=== PATIENT | male | born 2000 | race Caucasian/White ===

== ENCOUNTER 2025-01-24 09:51 | Day surgery (SDC) | payer BC, MEDICAID ==
[2025-01-24] MEDS ORDERED: Propofol 200 MG/20 ML SDV ONE (09:55)
[2025-01-24] MEDS ORDERED: fentaNYL 100 MCG/2 ML SDV ONE (09:55)
[2025-01-24] MEDS: Lactated Ringers 1,000 ML IV SCH (12:02)
== END 2025-01-24 11:54 | disposition home or self-care (01) ==
LOC: VM.SDS 09:51
PROVIDERS: ATTEND Surgery
DX: K29.50 Unspecified chronic gastritis without bleeding (principal); K20.90 Esophagitis, unspecified without bleeding; K31.89 Other diseases of stomach and duodenum; F31.9 Bipolar disorder, unspecified; L70.9 Acne, unspecified; Z79.899 Other long term (current) drug therapy
CPT/HCPCS: 00731; J2704; J3010; J7120